=== PATIENT | female | born 1960 | race American Indian/Alaskan Native ===

== ENCOUNTER 2021-04-29 15:26 | Emergency (ER) | payer BC ==
[2021-04-29 19:16] VITALS: BP 146/100
[2021-04-29] MEDS ORDERED: SODIUM CHLORIDE 0.9% 1000 ML 1,000 ML IV ONE (21:39)
[2021-04-29] MEDS ORDERED: oxyCODONE /ACETAMINOPHEN 5-325MG TAB PO ONE (21:39)
[2021-04-29] MEDS ORDERED: HYDROCORTISONE SOD SUCC 100 MG/2 ML VIAL IV ONE (21:40)
--- NOTE | 2021-04-29 21:41 | Emergency Department Report ---
- General Chief complaint: Weakness Stated complaint: LOW BLOOD PRESSURE/WEAKNESS Time Seen by Provider: 04/29/21 21:26 Source: patient Mode of arrival: Ambulatory Limitations: No Limitations - History of Present Illness Initial comments: CC: "I am just weak." HPI: This is a 61 yo female with hx of thyroid disease, vocal cord paralysis, hyperlipidemia who presents with generalized weakness since Thursday last week. Recent Labs revealed abnormally high TSH. Patient has not been compliant with synthroid. Hemoglobin 10.9. Referred to ED for IVF. She has had a fall recent ly. Has lower back pain. No bowel or urine incontinence. No leg weakness. MD Complaint: generalized weakness -: Gradual Location: generalized Severity: moderate Consistency: constant Improves with: none Worsens with: none Context: other (noncompliant with synthroid medication) - Related Data Previous Rx's Medication Instructions Recorded Last Taken Type HYDROcodone/APAP 5-325 [Greene 1 each PO Q6HR PRN #15 tablet 04/30/21 Unknown Rx 5/325] Levothyroxine [Synthroid] 75 mcg PO QAM 30 Days #30 tablet 04/30/21 Unknown Rx Allergies Allergy/AdvReac Type Severity Reaction Status Date / Time No Known Allergies Allergy Unverified 04/29/21 19:16 ED Review of Systems ROS: Stated complaint: LOW BLOOD PRESSURE/WEAKNESS Other details as noted in HPI Comment: All other systems reviewed and negative Constitutional: malaise. denies: chills, fever Respiratory: denies: cough, shortness of breath Cardiovascular: denies: chest pain Gastrointestinal: denies: abdominal pain ED Past Medical Hx - Past Medical History Previous Medical History?: Yes Additional medical history: vocals paralyzed. thyroid disease hyperlipidemia - Surgical History Past Surgical History?: Yes Additional Surgical History: thyroid surgery - Social History Smoking Status: Never Smoker Substance Use Type: None - Medications Home Medications: Home Medications Medication Instructions Recorded Confirmed Last Taken Type HYDROcodone/APAP 5-325 [Greene 1 each PO Q6HR PRN #15 tablet 04/30/21 Unknown Rx 5/325] Levothyroxine [Synthroid] 75 mcg PO QAM 30 Days #30 tablet 04/30/21 Unknown Rx ED Physical Exam - General Limitations: No Limitations General appearance: alert, in no apparent distress - Head Head exam: Present: atraumatic, normocephalic - Eye Eye exam: Present: normal appearance - ENT ENT exam: Present: mucous membranes moist - Neck Neck exam: Present: normal inspection, full ROM - Respiratory Respiratory exam: Present: normal lung sounds bilaterally. Absent: respiratory distress, wheezes, rales, rhonchi - Cardiovascular Cardiovascular Exam: Present: regular rate, normal rhythm, normal heart sounds. Absent: systolic murmur, diastolic murmur, rubs, gallop - GI/Abdominal GI/Abdominal exam: Present: soft, normal bowel sounds. Absent: distended, tenderness, guarding, rebound - Extremities Exam Extremities exam: Present: normal inspection - Neurological Exam Neurological exam: Present: alert, oriented X3 - Psychiatric Psychiatric exam: Present: normal affect, normal mood - Skin Skin exam: Present: warm, dry, intact, normal color. Absent: rash ED Course Vital Signs 04/29/21 04/29/21 19:13 23:32 Temperature 97.8 F Pulse Rate 105 H Respiratory 18 16 Rate Blood Pressure 146/100 O2 Sat by Pulse 98 Oximetry ED Medical Decision Making - Lab Data Result diagrams: 04/29/21 21:51 04/29/21 21:51 - Medical Decision Making CBC notable for benign neutropenia chemistry within normal limits no indication of myxedema, no hypotension or metabolic derangement. I have given patient IV fluid IV hydrocortisone p.o. Synthroid. No evidence of severe injury from fall. Patient also received percocet. Prescriptions for norco and synthroid provided. Critical care attestation.: If time is entered above; I have spent that time in minutes in the direct care of this critically ill patient, excluding procedure time. ED Disposition Clinical Impression: Hypothyroidism, Back pain, History of fall Disposition: HOME / SELF CARE / HOMELESS Is pt being admited?: No Does the pt Need Aspirin: No Condition: Stable Instructions: Hypothyroidism, Acute Back Pain, Adult Prescriptions: HYDROcodone/APAP 5-325 [Greene 5/325] 1 each PO Q6HR PRN #15 tablet PRN Reason: Pain Levothyroxine [Synthroid] 75 mcg PO QAM 30 Days #30 tablet Referrals: ARSENIO RUSSELL [Other] - 3-5 Days AB MAYERS MD [Staff Physician] - as needed
[2021-04-29 22:32] LABS: BUN/Creatinine Ratio 13; Blood Urea Nitrogen 14 mg/dL (7-17); Hemolysis Index 34
[2021-04-29 22:38] LABS: Hematocrit 33.3 % (30.3-42.9); Hemoglobin 10.6 gm/dl (10.1-14.3); Mean Corpuscular HGB Conc 32 % (30-34); Mean Corpuscular Volume 96 fl (79-97); Platelet Count 239 K/mm3 (140-440); Red Blood Count 3.48 M/mm3 (3.65-5.03); Red Cell Distribution Width 13.9 % (13.2-15.2)
[2021-04-29] MEDS ORDERED: LEVOTHYROXINE 75 MCG TAB PO ONE (22:41)
[2021-04-30 00:56] LABS: Anisocytosis 1+; Basophils % (Manual) 0 % (0.0-1.8); Eosinophils % (Manual) 0 % (0.0-4.3); Total Cells Counted 100
[2021-04-30 00:57] LABS: Hypochromasia 1+; Large Platelets Few; Macrocytosis Few; Ovalocytes Few; Platelet Estimate Consistent w Auto; Spherocytes Few
== END 2021-04-30 00:30 | disposition home or self-care (01) ==
LOC: ED 15:26
DX: E03.9 Hypothyroidism, unspecified (principal); M54.9 Dorsalgia, unspecified; Z79.899 Other long term (current) drug therapy; W18.39XA Other fall on same level, initial encounter; Y93.89 Activity, other specified; Y92.89 Other specified places as the place of occurrence of the external cause; Y99.8 Other external cause status
CPT/HCPCS: 36415; 80048; 85007; 85025; 96360; 99283; J7030; Q0162